=== PATIENT | female | born 1970 | race Caucasian/White ===

== ENCOUNTER → 2017-11-09 | Outpatient (CLI) | payer OTHER ==
--- NOTE | 2017-11-09 12:23 | US ---
EXAMINATION TYPE: US abdomen complete DATE OF EXAM: 11/09/2017 COMPARISON: NONE CLINICAL HISTORY: R10.11 abdominal pain RUQ,R11.2 nausea vomiting. abd pain EXAM MEASUREMENTS: Liver Length: 15.5 cm Gallbladder Wall: 0.2 cm CBD: 0.5 cm Spleen: 11.3 cm Right Kidney: 10.7 x 4.0 x 4.3 cm Left Kidney: 12.7 x 3.5 x 4.8 cm Pancreas: wnl Liver: wnl Gallbladder: wnl Evidence for sonographic Ervin's sign: no CBD: wnl Spleen: wnl Right Kidney: wnl Left Kidney: wnl Upper IVC: wnl Abd Aorta: wnl The liver is homogenous. The intrahepatic portion of the IVC and proximal abdominal aorta are within normal limits. There is no evidence of cholelithiasis. Common bile duct is unremarkable. The visu alized portions of the pancreas are homogenous. The spleen is unremarkable. Kidneys are symmetric a nd free of hydronephrosis. No renal lesions are seen. IMPRESSION: No sonographic evidence of cholelithiasis or acute cholecystitis. HIDA scan with CCK coul d be performed to evaluate for biliary dyskinesia.
== END | disposition home or self-care (01) ==
LOC: RADUSWWP 11:17
PROVIDERS: ATTEND Family Medicine
DX: R10.11 Right upper quadrant pain (principal)
CPT/HCPCS: 76700

== ENCOUNTER → 2018-07-19 | Outpatient (CLI) | payer OTHER ==
[2018-07-19 15:19] LABS: HCT 33.1 % (34.0-46.0); HGB 10.2 gm/dL (11.4-16.0); Hypochromasia Moderate; MCHC 30.9 g/dL (31.0-37.0); MCV 77.6 fL (80.0-100.0); Mean Platelet Volume 7.5; Microcytosis Slight; Platelet Count 231 k/uL (150-450); RBC 4.26 m/uL (3.80-5.40); RDW 15.3 % (11.5-15.5); WBC 4.9 k/uL (3.8-10.6)
--- NOTE | 2018-07-19 15:47 | US ---
EXAMINATION TYPE: US pelvis complete transvag DATE OF EXAM: 07/19/2018 COMPARISON: NONE CLINICAL HISTORY: N93.8 Other specified abnormal uterine and vaginal. DUB with heavy menses and long duration; TECHNIQUE: Transvaginal (TV) and Transabdominal (TA) . Transabdominal sonographic images of the pel vis were acquired. Transvaginal sonographic images were medically necessary to better assess the fol lowing anatomy: endometrium Date of LMP: 06/29/2018 EXAM MEASUREMENTS: Uterus: 12.3 x 7.7 x 5.4 cm Endometrial Stripe: 1.4 cm Right Ovary: 4.0 x 2.6 x 3.7 cm Left Ovary: 3.9 x 3.6 x 2.4 cm 1. Uterus: Anteverted; enlarged as is >10.0cm; multiple small Nabothian Cysts are seen in cervix 2. Endometrium: Transabdominally cystic areas noted within one third upper endometrium but only hypo echoic upper endometrium seen with TV US post void; thickness is wnl as measured TA US and for Day 21 LMP 3. Right Ovary: multifollicular with largest cyst seen as involuting cyst TA US = 2.2 x 1.5 x 1.7cm 4. Left Ovary: multifollicular with largest as complex cyst with peripheral ring of color flow Spectral, color and waveform Doppler imaging shows good arterial and venous flow within the ovaries ; 5. Bilateral Adnexa: wnl 6. Posterior cul-de-sac: small amount of cul de sac fluid seen = 2.6 x 3.5 x 1.6cm Prominent heterogeneous anteverted uterus. Endometrial stripe is upper limits of normal for secretory phase of menstrual cycle. Some tiny cystic change is noted. Small amount of free fluid is seen in pe lvic cul-de-sac towards end of study. Both ovaries are identified. There is nonsimple cyst in right ovary seen better on transabdominal nirav luation measuring 2.2 cm long axis. Left ovary is not as well seen on images saved during transabdomi nal and transvaginal investigation. IMPRESSION: A 2.2 cm nonspecific simple cyst right ovary noted favor hemorrhagic cyst. Advise short-t erm ultrasound follow-up in 6 weeks' time . Endometrial stripe is noted upper limits of normal.
[2018-07-19 15:48] LABS: T4, Free (Free Thyroxine) 1.17 ng/dL (0.78-2.19)
== END | disposition home or self-care (01) ==
LOC: RADUSWWP 13:44
PROVIDERS: ATTEND Obstetrics & Gynecology
DX: N83.291 Other ovarian cyst, right side (principal)
CPT/HCPCS: 36415; 76830; 76856; 82670; 83001; 83002; 84146; 84439; 84443; 84479; 85027

== ENCOUNTER → 2018-08-23 | Outpatient (CLI) | payer OTHER ==
--- NOTE | 2018-08-26 09:28 | MM ---
Reason for exam: screening (asymptomatic). Last mammogram was performed 4 years and 8 months ago. Physical Findings: A clinical breast exam by your physician is recommended on an annual basis and results should be correlated with mammographic findings. MG Screening Mammo w CAD Bilateral CC and MLO view(s) were taken. Prior study comparison: December 26, 2013, [facility] DIGITAL RIGHT MAMMOGRAM w/CAD. December 24, 2013, bilateral digital screening mammo w/CAD. The breast tissue is heterogeneously dense. This may lower the sensitivity of mammography. There is chronic nodularity bilaterally. There is no dominant lesion. No significant changes when compared with prior studies. ASSESSMENT: Benign, BI-RAD 2 RECOMMENDATION: Routine screening mammogram of both breasts in 1 year.
== END | disposition home or self-care (01) ==
LOC: RADMAMWWP 10:02
PROVIDERS: ATTEND Obstetrics & Gynecology
DX: Z12.31 Encounter for screening mammogram for malignant neoplasm of breast (principal)
CPT/HCPCS: 77067